=== PATIENT | female | born 1935 | race Caucasian/White ===

== ENCOUNTER 2020-05-09 11:01 | Emergency (ER) | payer MEDICARE ==
[2020-05-09] MEDS ORDERED: BACTROBAN NASAL1 GM TOP (12:49)
== END 2020-05-09 13:45 | disposition home or self-care (01) ==
LOC: FER 11:01
DX: S80.01XA Contusion of right knee, initial encounter (principal); S70.01XA Contusion of right hip, initial encounter; S80.812A Abrasion, left lower leg, initial encounter; G20 Parkinson's disease; W19.XXXA Unspecified fall, initial encounter; Z91.81 History of falling; Y92.009 Unspecified place in unspecified non-institutional (private) residence as the place of occurrence of the external cause; Z79.899 Other long term (current) drug therapy
CPT/HCPCS: 72170; 73560; 73590

== ENCOUNTER 2020-11-09 11:36 | Emergency (ER) | payer MEDICARE ==
[~2020-11-09 11:36] MED LIST: BACTROBAN NASAL1 GM TOP
== END 2020-11-09 14:13 | disposition home or self-care (01) ==
LOC: FER 11:36
DX: S01.01XA Laceration without foreign body of scalp, initial encounter (principal); I10 Essential (primary) hypertension; Z23 Encounter for immunization; W19.XXXA Unspecified fall, initial encounter; Y92.009 Unspecified place in unspecified non-institutional (private) residence as the place of occurrence of the external cause
CPT/HCPCS: 70450; 72125; 90471; 90715

== ENCOUNTER 2020-12-06 12:54 | Emergency (ER) | payer MEDICARE ==
[2020-12-06 14:00] LABS: BASOPHIL 0.4 % (0-2); EOSINOPHIL 4.5 % (0-7); HCT 39.2 % (37.0-47.0); HGB 12.1 g/dl (12.5-16.0); LYMPHOCYTE 18.6 % (15-48); MCH 28.7 pg (25.0-31.0); MCHC 30.9 g/dL (32.0-36.0); MCV 92.9 fL (78.0-100.0); MONOCYTE 11.7 % (0-12); MPV 10.2 fL (6.0-9.5); NEUTROPHIL 64.7 % (41-80); NRBC 0; PLT 253 K/uL (150-400); RBC 4.22 M/uL (4.20-5.40); RDW 14.4 % (11.5-14.0); WBC 7.8 K/uL (4.0-10.5)
[2020-12-06 14:16] LABS: ALBUMIN 2.8 g/dL (3.4-5.0); BILIRUBIN - TOTAL 0.6 mg/dL (0.2-1.0); BUN/CREAT RATIO (CALC) 21.1 RATIO; CREATININE 1.09 mg/dL (0.51-0.95); GLOBULIN (CALCULATION) 3.8 g/dL; POTASSIUM 4.2 mmol/L (3.5-5.1); TOTAL PROTEIN 6.6 g/dL (6.4-8.2)
[2020-12-06 14:54] LABS: BILIRUBIN NEGATIVE (NEGATIVE); BLOOD NEGATIVE Ery/uL (NEGATIVE); CLARITY CLEAR (CLEAR); COLOR ORANGE (YELLOW); GLUCOSE (U) NORMAL (NORMAL); LEUKOCYTES NEGATIVE Leu/uL (NEGATIVE); NITRITE NEGATIVE (NEGATIVE); PROTEIN NEGATIVE (NEGATIVE); UROBILINOGEN 0.2 mg/dL (0.2-1.0); pH 6.5 (5.0-9.0)
== END 2020-12-06 15:48 | disposition home or self-care (01) ==
LOC: FER 12:54
PROVIDERS: Emergency Medicine
DX: G20 Parkinson's disease (principal); I10 Essential (primary) hypertension; Z88.7 Allergy status to serum and vaccine
CPT/HCPCS: 36415; 70450; 80053; 81003; 84484; 85025; 93005

== ENCOUNTER 2021-01-10 17:55 | Emergency (ER) | payer MEDICARE | END 2021-01-10 20:32 | disposition home or self-care (01) | LOC: FER 17:55 | DX: S60.041A Contusion of right ring finger without damage to nail, initial encounter (principal); S60.222A Contusion of left hand, initial encounter; I10 Essential (primary) hypertension; Z88.1 Allergy status to other antibiotic agents; Z90.710 Acquired absence of both cervix and uterus; Y92.129 Unspecified place in nursing home as the place of occurrence of the external cause; W01.0XXA Fall on same level from slipping, tripping and stumbling without subsequent striking against object, initial encounter | CPT/HCPCS: 73110; 73130 ==

== ENCOUNTER 2021-01-20 11:08 | Emergency (ER) | payer MEDICARE ==
[2021-01-20 12:38] LABS: BASOPHIL 0.3 % (0-2); HCT 41.3 % (37.0-47.0); HGB 12.5 g/dl (12.5-16.0); LYMPHOCYTE 17.1 % (15-48); MCH 28.4 pg (25.0-31.0); MCHC 30.3 g/dL (32.0-36.0); MCV 93.9 fL (78.0-100.0); MONOCYTE 9.4 % (0-12); MPV 10.1 fL (6.0-9.5); NRBC 0; PLT 245 K/uL (150-400); RDW 15.1 % (11.5-14.0); WBC 8.7 K/uL (4.0-10.5)
[2021-01-20 12:39] LABS: BILIRUBIN NEGATIVE (NEGATIVE); BLOOD TRACE-INTACT Ery/uL (NEGATIVE); CLARITY HAZY (CLEAR); COLOR YELLOW (YELLOW); GLUCOSE (U) NORMAL (NORMAL); LEUKOCYTES 3+ Leu/uL (NEGATIVE); NITRITE POSITIVE (NEGATIVE); PROTEIN TRACE (LOW) mg/dL (NEGATIVE); SPECIFIC GRAVITY 1.025 (1.001-1.030); UROBILINOGEN 0.2 mg/dL (0.2-1.0)
[2021-01-20 12:47] LABS: BACTERIA 4+; MUCOUS LARGE; SQUAMOUS EPITHELIAL CELLS 20-50; URINARY RBC RARE
[2021-01-20 12:48] LABS: AMORPHOUS URATES CRYSTALS MODERATE
[2021-01-20 13:55] LABS: ALBUMIN 3.1 g/dL (3.4-5.0); BILIRUBIN - TOTAL 0.7 mg/dL (0.2-1.0); CREATININE 0.75 mg/dL (0.51-0.95); GLOBULIN (CALCULATION) 3.3 g/dL; POTASSIUM 3.5 mmol/L (3.5-5.1); TOTAL PROTEIN 6.4 g/dL (6.4-8.2)
[2021-01-20] MEDS ORDERED: BACTRIM DS TAB1 EACH PO (14:41)
[2021-01-20] MEDS ORDERED: NORCO 5-325 TA1 EACH PO (14:41)
== END 2021-01-20 15:14 | disposition home or self-care (01) ==
LOC: FER 11:08
PROVIDERS: Internal Medicine
DX: S40.211A Abrasion of right shoulder, initial encounter (principal); M25.561 Pain in right knee; N39.0 Urinary tract infection, site not specified; I10 Essential (primary) hypertension; G20 Parkinson's disease; W19.XXXA Unspecified fall, initial encounter; Y92.009 Unspecified place in unspecified non-institutional (private) residence as the place of occurrence of the external cause
CPT/HCPCS: 36415; 73020; 73502; 73560; 80053; 81001; 85025; J0696

== ENCOUNTER 2021-01-28 18:16 | Inpatient (IN) | payer MEDICARE ==
[~2021-01-28] VITALS: Ht 162.6 cm; Wt 76.4 kg
[~2021-01-28 18:16] MED LIST changes: +BACTRIM DS TAB1 EACH PO; +NORCO 5-325 TA1 EACH PO
[2021-01-28 20:34] LABS: BASOPHIL 0.4 % (0-2); EOSINOPHIL 2.9 % (0-7); HCT 38.1 % (37.0-47.0); HGB 11.7 g/dl (12.5-16.0); MCH 27.9 pg (25.0-31.0); MCHC 30.7 g/dL (32.0-36.0); MCV 90.7 fL (78.0-100.0); MONOCYTE 11.7 % (0-12); MPV 9.5 fL (6.0-9.5); NEUTROPHIL 64.9 % (41-80); NRBC 0; PLT 287 K/uL (150-400); RDW 14.7 % (11.5-14.0); WBC 6.8 K/uL (4.0-10.5)
[2021-01-28 20:40] LABS: INR 1.02 (0.9-1.2); PROTHROMBIN TIME 12.8 SECONDS (11.8-13.4); PTT 27.9 SECONDS (24.4-34.7)
[2021-01-28 20:48] LABS: BILIRUBIN NEGATIVE (NEGATIVE); BLOOD NEGATIVE Ery/uL (NEGATIVE); CLARITY CLEAR (CLEAR); COLOR YELLOW (YELLOW); GLUCOSE (U) NORMAL (NORMAL); LEUKOCYTES 2+ Leu/uL (NEGATIVE); NITRITE POSITIVE (NEGATIVE); PROTEIN NEGATIVE (NEGATIVE); SPECIFIC GRAVITY 1.025 (1.001-1.030); UROBILINOGEN 0.2 mg/dL (0.2-1.0)
[2021-01-28 20:51] LABS: URINARY WBC 20-50
[2021-01-28 20:52] LABS: BACTERIA 2+
[2021-01-28 20:55] LABS: PRO-BNP 200 pg/mL (<450)
[2021-01-28 21:01] LABS: ALBUMIN 3.3 g/dL (3.4-5.0); BILIRUBIN - TOTAL 0.3 mg/dL (0.2-1.0); BUN/CREAT RATIO (CALC) 18.4 RATIO; C-REACTIVE PROTEIN 1.3 mg/dL (<=0.90); CREATININE 1.03 mg/dL (0.51-0.95); GLOBULIN (CALCULATION) 3.4 g/dL; MAGNESIUM 2.2 mg/dL (1.8-2.4); TOTAL PROTEIN 6.7 g/dL (6.4-8.2)
[2021-01-28] MEDS ORDERED: CARBIDOPA-LEVO1 EAC6 PO (23:43)
[2021-01-28] MEDS ORDERED: LIPITOR20 MG PO (23:44)
[2021-01-28] MEDS ORDERED: NORVASC2.5 MG PO (23:48)
[2021-01-28] MEDS ORDERED: COQ1050 MG PO (23:49)
[2021-01-28] MEDS ORDERED: CENTRUM SILVER1 EAC4 PO (23:50)
[2021-01-28] MEDS ORDERED: MIRALAX17 GM PO (23:51)
[2021-01-28] MEDS ORDERED: PRESERVISION A1 EAC2 PO (23:52)
[2021-01-28] MEDS ORDERED: VITAMIN D3 COM1 EACH PO (23:53)
[2021-01-29 06:43] LABS: BASOPHIL 0.3 % (0-2); EOSINOPHIL 2.6 % (0-7); HCT 37.6 % (37.0-47.0); HGB 11.8 g/dl (12.5-16.0); LYMPHOCYTE 20.5 % (15-48); MCHC 31.4 g/dL (32.0-36.0); MCV 89.3 fL (78.0-100.0); MPV 9.6 fL (6.0-9.5); NEUTROPHIL 67.3 % (41-80); NRBC 0; PLT 265 K/uL (150-400); RBC 4.21 M/uL (4.20-5.40); RDW 14.6 % (11.5-14.0); WBC 6.5 K/uL (4.0-10.5)
[2021-01-29 07:03] LABS: ALBUMIN 3.2 g/dL (3.4-5.0); BILIRUBIN - TOTAL 0.5 mg/dL (0.2-1.0); BUN/CREAT RATIO (CALC) 12.6 RATIO; CREATININE 0.95 mg/dL (0.51-0.95); GLOBULIN (CALCULATION) 2.6 g/dL; PHOSPHORUS 3.2 mg/dL (2.6-4.7); POTASSIUM 3.9 mmol/L (3.5-5.1); TOTAL PROTEIN 5.8 g/dL (6.4-8.2)
--- NOTE | 2021-01-29 13:38 | NUR ---
TC TO GREG AT [facility]. SHE ADVISED THAT PT IS ALREADY IN PERSONAL CARE. ADVISED HER THAT PT. MAY POSSIBLY RETURN ON MONDAY, BUT WILL NEED PT. GREG GAVE ME THE REPORT NUMBER A CELL NUMBER AT AND FAX NUMBER FOR DC SUMMARY IS [phone].
[2021-01-30 06:43] LABS: BASOPHIL 0.5 % (0-2); HCT 35.7 % (37.0-47.0); HGB 11.2 g/dl (12.5-16.0); LYMPHOCYTE 20.6 % (15-48); MCH 28.3 pg (25.0-31.0); MCHC 31.4 g/dL (32.0-36.0); MCV 90.2 fL (78.0-100.0); MONOCYTE 8.9 % (0-12); MPV 9.3 fL (6.0-9.5); NEUTROPHIL 66.6 % (41-80); NRBC 0; PLT 261 K/uL (150-400); RBC 3.96 M/uL (4.20-5.40); RDW 14.6 % (11.5-14.0); WBC 5.6 K/uL (4.0-10.5)
[2021-01-30 07:04] LABS: BUN/CREAT RATIO (CALC) 14.6 RATIO; CREATININE 0.82 mg/dL (0.51-0.95); POTASSIUM 3.7 mmol/L (3.5-5.1)
[2021-01-31] MEDS ORDERED: INVANZ 1GM1 GM/VIAL IV (11:46)
--- NOTE | 2021-01-31 13:34 | NUR ---
ORDER PLACED FOR MIDLINE PER DR XIONG. PURPOSE OF MIDLINE DISCUSSED WITH PATIENT. ALL SUPPLIES BROUGHT TO BEDSIDE. PATIENT WAS POSITIONED TO ASSESS RIGHT UPPER EXTREMITY FOR ACCESS. TOURNIQUET APPLIED AND VEIN VISUALIZED USING ULTRASOUND. TOURNIQUET WAS RELEASED WHILE STERILE FIELD WAS SET UP. TOURNIQUET WAS REAPPLIED, SITE CLEANED WITH SUPPLIED CHG WAND, AND DRAPE APPLIED OVER SITE. STERILE PROBE COVER WAS APPLIED TO ULTRASOUND PROBE. NEEDLE GUIDE WAS APPLIED TO PROBE AND NEEDLE INSERTED INTO GUIDE. VEIN WAS RE-VISUALIZED WITH ULTRASOUND, LIDOCAINE WAS INJECTED LOCALLY, AND THE NEEDLE WAS GUIDED INTO THE VEIN. BLOOD FLOW WAS NOTED FROM THE NEEDLE AND THE GUIDEWIRE WAS SUCCESSFULLY THREADED THROUGH THE NEEDLE. THE NEEDLE WAS REMOVED AND SITE CLEANED OF EXCESS BLOOD. THE SHEATH WAS PLACED OVER THE GUIDEWIRE AND SUCCESSFULLY INSERTED INTO THE VEIN. THE SHEATH WAS REMOVED AND EXTENSION TUBING APPLIED TO THE CANNULA HUB. LINE WAS FLUSHED WITHOUT RESISTANCE AND BLOOD WAS ASPIRATED FROM THE LINE. THE LINE WAS AGAIN FLUSHED. A BIOPATCH WAS APPLIED TO THE SITE AND THE CANNULA WAS SECURED WITH FOAM TAPE. A TEGADERM WAS PLACED SECURELY OVER THE SITE. THE PATIENT TOLERATED THE PROCEDURE WELL AND THERE WAS NO BLEEDING OR SIGN OF A HEMATOMA AT THE SITE.
[2021-02-01 05:42] LABS: BASOPHIL 0.5 % (0-2); EOSINOPHIL 2.4 % (0-7); HCT 39.8 % (37.0-47.0); HGB 12.4 g/dl (12.5-16.0); LYMPHOCYTE 15.4 % (15-48); MCH 28.1 pg (25.0-31.0); MCHC 31.2 g/dL (32.0-36.0); MONOCYTE 8.8 % (0-12); MPV 9.7 fL (6.0-9.5); NEUTROPHIL 72.5 % (41-80); NRBC 0; PLT 316 K/uL (150-400); RBC 4.42 M/uL (4.20-5.40); RDW 14.2 % (11.5-14.0); WBC 8.1 K/uL (4.0-10.5)
[2021-02-01 06:06] LABS: BUN/CREAT RATIO (CALC) 18.7 RATIO; CREATININE 0.75 mg/dL (0.51-0.95); POTASSIUM 3.7 mmol/L (3.5-5.1)
--- NOTE | 2021-02-01 11:31 | NUR ---
TC FROM GREG AND CB AT [facility]. CARRIED WANTED TO KNOW IF A HH COULD HELP WITH ADMINISTRATING THE IV ABX. ADVISED HER THAT I WOULD HAVE TO CHECK. IN THE MEANTIME, JANE, WITH [facility] CALLED AND ADVISED THAT CB WITH [facility] HAD CONTACTED HER REGARDING HELPING WITH THE ABX. ILYA RQUESTED CLINICALS. FAXED CLINICALS TO [facility]. TC FROM JANE THEY WILL ACCEPT PATIENT AND WILL PROVIDE NURSING AND PT. TC TO GREG SHE WAS AWARE OF [facility] PROVIDING CARE. SHE WILL CONTACT THE SISTER, CELSO, AND LET HER KNOW THIS INFORMATION. GREG STATED THAT THEY WERE READY FOR PT TO RETURN WHEN DISCHARGED. CONFIRMED NUMBERS WITH GREG.
--- NOTE | 2021-02-01 11:34 | NUR ---
ADVISED MYESHA GOVEA, THAT PT IS READY FOR DISCHARGE. SHE WILL ADVISE BRO WHO IS PT. NURSE.
--- NOTE | 2021-02-01 14:32 | NUR ---
DR XIONG SAID WILL BE OK TO GIVE INVANZ IV NOW SO PT CAN GO BACK TO [facility]. [facility] DIN'T WANT TO TAKE HER DUE TO NOT KNOWING HOW TO DO IV ATB, TALKED TO CARRY AT FACILITY AND SAID SOMEONE IS TO COME AND TRAIN THEM ON IV MEDICATION BEFORE THEY WILL ACCEPT PT BACK TO FACILITY.
--- NOTE | 2021-02-01 16:14 | NUR ---
TALKED TO CELSO MABRY PT SISTER. WILL MEET EMS AT [facility]. AND WILL CELSO STATED THAT SHE WILL PAY FOR EMS RUN IF SHE HAS TO AND WILL SIGN PAPER AT [facility] WHEN PT ARRIVES.
[2021-02-04] MEDS ORDERED: LOVAZA1 GM PO (10:33)
[2021-02-04] MEDS ORDERED: OYSTER SHELL C500 MG PO (10:33)
[2021-02-04] MEDS ORDERED: RESTASIS1 EACH EYEBOTH (10:34)
[2021-02-04] MEDS ORDERED: ACETAMINOPHEN500 M2 PO (10:35)
== END 2021-02-01 17:10 | disposition home health service (06) | DRG 689 ==
LOC: FER 18:16 → FMS 21:35
PROVIDERS: Allergy & Immunology Allergy; Emergency Medicine; Nurse Practitioner; ADMIT Internal Medicine
PROC: 05HB33Z Insertion of Infusion Device into Right Basilic Vein, Percutaneous Approach (ICD-10-PCS; principal; 2021-01-31)
DX: N30.00 Acute cystitis without hematuria (principal); G92.8 Other toxic encephalopathy; Z16.12 Extended spectrum beta lactamase (ESBL) resistance; Z66 Do not resuscitate; I25.10 Atherosclerotic heart disease of native coronary artery without angina pectoris; E78.5 Hyperlipidemia, unspecified; Z20.822 Contact with and (suspected) exposure to COVID-19; K40.90 Unilateral inguinal hernia, without obstruction or gangrene, not specified as recurrent; G20 Parkinson's disease; F02.80 Dementia in other diseases classified elsewhere, unspecified severity, without behavioral disturbance, psychotic disturbance, mood disturbance, and anxiety; B96.20 Unspecified Escherichia coli [E. coli] as the cause of diseases classified elsewhere; Z88.7 Allergy status to serum and vaccine; Z79.899 Other long term (current) drug therapy; Z90.13 Acquired absence of bilateral breasts and nipples; Z90.710 Acquired absence of both cervix and uterus; Z98.890 Other specified postprocedural states; Z85.3 Personal history of malignant neoplasm of breast; Z82.49 Family history of ischemic heart disease and other diseases of the circulatory system; Z88.1 Allergy status to other antibiotic agents
CPT/HCPCS: 36415; 70450; 71250; 80048; 80053; 81001; 82728; 83605; 83735; 83880; 84100; 84145; 84443; 84484; 85025; 85610; 85730; 86140; 87040; 87076; 87088; 87186; 93005; 97116; 97162; 97166; 97530; 97530-GP; 97535; J1335; J1650; J7030; U0002

== ENCOUNTER 2021-02-02 17:39 | Emergency (ER) | payer MEDICARE ==
[~2021-02-02 17:39] MED LIST changes: +CARBIDOPA-LEVO1 EAC6 PO; +CENTRUM SILVER1 EAC4 PO; +COQ1050 MG PO; +INVANZ 1GM1 GM/VIAL IV; +LIPITOR20 MG PO; +MIRALAX17 GM PO; +NORVASC2.5 MG PO; +PRESERVISION A1 EAC2 PO; +VITAMIN D3 COM1 EACH PO
[2021-02-04] MEDS ORDERED: LOVAZA1 GM PO (10:33)
[2021-02-04] MEDS ORDERED: OYSTER SHELL C500 MG PO (10:33)
[2021-02-04] MEDS ORDERED: RESTASIS1 EACH EYEBOTH (10:34)
[2021-02-04] MEDS ORDERED: ACETAMINOPHEN500 M2 PO (10:35)
== END 2021-02-02 18:45 | disposition home or self-care (01) ==
LOC: FER 17:39
DX: T82.594A Other mechanical complication of infusion catheter, initial encounter (principal); F03.90 Unspecified dementia, unspecified severity, without behavioral disturbance, psychotic disturbance, mood disturbance, and anxiety; Z88.7 Allergy status to serum and vaccine
CPT/HCPCS: 99283; J1642